=== PATIENT | female | born 1955 | race Caucasian/White ===

== ENCOUNTER 2020-04-04 06:29 | Inpatient (IN) ==
--- NOTE | 2020-03-18 10:25 | PAT Medication Instructions ---
Medication Instructions Date of Service March 18, 2020 Home Medications amitriptyline 10 mg PO HS atorvastatin 20 mg PO HS citalopram 20 mg PO HS conjugated estrogens [Premarin] 0.625 mg VAGINAL 2XWK diclofenac sodium 75 mg PO BID PRN finasteride 2.5 mg PO QPM msm-aloe [id number] oil [Deep Blue Relief] 1 ea TOPICAL UD PRN psyllium husk [Metamucil] 0.52 g PO BID ASK your surgeon for instructions diclofenac sodium 75 mg PO BID PRN STOP taking 24 hours before surgery conjugated estrogens [Premarin] 0.625 mg VAGINAL 2XWK msm-aloe [id number] oil [Deep Blue Relief] 1 ea TOPICAL UD PRN DO NOT take the morning of surgery psyllium husk [Metamucil] 0.52 g PO BID Take evening before surgery amitriptyline 10 mg PO HS atorvastatin 20 mg PO HS citalopram 20 mg PO HS finasteride 2.5 mg PO QPM psyllium husk [Metamucil] 0.52 g PO BID Other Notes If you have any questions please call us at [phone] or [phone] or [phone] or [phone]
--- NOTE | 2020-03-20 10:28 | Anesthesiology Consultation ---
Date of Service March 20, 2020 Assessment & Plan (1) Encounter for pre-operative examination: Per PAT assessment on 03/20: Travel screen negative. No known COVID-19 positive contacts. No current COVID-19 related symptoms. No hx of COVID-19 testing. Chart Review Chart Review: Acceptable Risk for Surgery and Patient seen in Pre Admission Testing Teaching & Discussion Pre-Anesthesia Teaching/Discussion Notes: Instructed NPO after midnight before surgery,except medications with 15 cc of water. Medication instructions provided according to the [facility] guidelines. History Surgery Operation Date: 04/04/20 07:45 Proposed Procedures p L3-L4, L5-S1 Decompression Fusion, L4-L5 Hardware Removal, Spinal Cord Monitoring - Praveen Bray DO Height/Weight Height: 5 ft 3 in Weight: 75.5 kg Allergies Allergy/AdvReac Type Severity Reaction Status Date / Time Sulfa (Sulfonamide Allergy Mild Rash Verified 03/13/20 10:08 Antibiotics) Penicillins Allergy Unknown Rash Verified 03/13/20 10:08 tetracycline Allergy Unknown Rash Verified 03/13/20 10:08 Medications Home Medications Medication Instructions Recorded Confirmed Last Taken amitriptyline 10 mg PO HS 03/13/20 03/13/20 Unknown atorvastatin 20 mg PO HS 03/13/20 03/13/20 Unknown citalopram 20 mg PO HS 03/13/20 03/13/20 Unknown conjugated estrogens [Premarin] 0.625 mg VAGINAL 2XWK 03/13/20 03/13/20 Unknown diclofenac sodium 75 mg PO BID PRN 03/13/20 03/13/20 Unknown finasteride 2.5 mg PO QPM 03/13/20 03/13/20 Unknown msm-aloe [id number] oil 1 ea TOPICAL UD PRN 03/13/20 03/13/20 Unknown [Deep Blue Relief] psyllium husk [Metamucil] 0.52 g PO BID 03/13/20 03/13/20 Unknown Past Medical History Medical History Anxiety Chronic back pain GERD (gastroesophageal reflux disease) occasional with food triggers Hyperlipidemia Skin cancer BCC Skin cancer (melanoma) Exercise / Class Metabolic Activity II 4-5 Yardwork/Stairs/Walk up hill Past Family History Family History Mother Family history of reaction to anesthesia SLOW TO WAKE UP/HALLUCINATIONS Sister Family history of reaction to anesthesia SLOW TO WAKE UP Family history of diabetes mellitus Sister Family history of reaction to anesthesia SLOW TO WAKE UP Past Surgical History Surgical History Back pain with history of spinal surgery LUMBAR History of bilateral tubal ligation History of section History of colonoscopy History of esophagogastroduodenoscopy (EGD) History of laminectomy CERVICAL History of repair of rotator cuff RIGHT Past Anesthesia History Other ("slow to wake"/also, post-op hypotension with tubal (30 years ago)) Mother: "slow to wake"/hallucinations Sisters: "slow to wake" History of PONV No Hx of PONV and Hx of Motion Sickness Social History Smoking Status: Never smoker Do You Dip or Chew Tobacco: No Hx Alcohol Use: Yes Alcohol type: wine alcohol intake frequency: holidays/special occasions only Alcohol Intake Frequency Comment: RARELY Hx Substance Use: No Review of Systems Patient denies chest pain, shortness of breath, dyspnea on exertion, fever, chills, cough, wheezing, palpitations. Physical Exam Vital Signs VITALS BP 128/80 P 60 TEM 98.1P SP02 98%Ra RESP 18 PHYSICAL Mildly decreased cervical extension. Full TMJ range of motion. TMD 3 finger breaths Mallampati Score 1 Dentition: missing left upper side tooth, + several crowns "all over" Lungs: clear throughout to auscultation Cardiac: regular rate and rhythm, no murmurs noted Spine: normal Carotid arteries: negative bruit Extremities: no edema Testing Laboratory Results 03/20/20 10:55 03/20/20 10:55 PT 11.7 Seconds (9.0-12.0) 03/20/20 10:55 INR 1.1 (0.9-1.1) 03/20/20 10:55 APTT 28.4 Seconds (21.0-31.0) 03/20/20 10:55 Urine Color Yellow 03/20/20 Unknown Urine Appearance Clear (Clear) 03/20/20 Unknown Urine pH 6.5 (4.5-7.5) 03/20/20 Unknown Ur Specific [place] 1.009 (1.000-1.030) 03/20/20 Unknown Urine Protein Negative (Negative) 03/20/20 Unknown Urine Glucose (UA) Negative (Negative) 03/20/20 Unknown Urine Ketones Negative (Negative) 03/20/20 Unknown Urine Nitrite Negative (Negative) 03/20/20 Unknown Ur Leukocyte Esterase Negative (Negative) 03/20/20 Unknown Blood Type O Positive 03/20/20 10:55 Antibody Screen NEGATIVE 03/20/20 10:55 Electrocardiogram Date: 03/20/20 SB at 57bpm. unconfirmed report* Chest X-Ray Date: 03/20/20 Findings: + NAD
--- NOTE | 2020-03-20 11:19 | XRay Report ---
XR chest Pre-admission PA/Lat HISTORY: Preop. COMPARISON: None. FINDINGS: The lungs are clear. Cardiac silhouette is normal in size. No pleural effusions. No pneumot horax. IMPRESSION: No acute process. ACT 112: Negative or not required by law. Electronically signed by: Arsh Lawrence M.D. 03/20/2020 11:17 AM
[2020-03-20 11:47] LABS: Basophils # (auto) 0.01 K/uL (0-0.2); Basophils % (auto) 0.2 %; Eosinophils # (auto) 0.09 K/uL (0-0.5); Eosinophils % (auto) 2.1 %; Hematocrit (blood only) 39.3 % (37-47); Hemoglobin 13.3 g/dL (12.0-16.0); Lymphocytes # (auto) 1.13 K/uL (1.2-3.4); Lymphocytes % (auto) 26.7 %; Mean Corpuscular Hemoglobin 28.7 pg (25-34); Mean Corpuscular Hgb Conc 33.8 g/dL (32-36); Mean Corpuscular Volume 84.7 fL (80-100); Mean Platelet Volume 9.6 fL (7.4-10.4); Monocytes # (auto) 0.35 K/uL (0.11-0.59); Monocytes % (auto) 8.3 %; Neutrophils # (auto) 2.66 K/uL (1.4-6.5); Neutrophils % (auto) 62.7 %; Platelet Count 169 K/uL (130-400); RDW Coefficient of Variation 14.2 % (11.5-14.5); RDW Standard Deviation 43.9 fL (36.4-46.3); Red Blood Count 4.64 M/uL (4.2-5.4); White Blood Count 4.24 K/uL (4.8-10.8)
[2020-03-20 11:49] LABS: Appearance Urine Clear (Clear); Bilirubin Urine Negative (Negative); Blood Urine Negative (Negative); Color Urine Yellow; Glucose Urine UA Negative (Negative); Ketones Urine Negative (Negative); Leukocyte Esterase Urine Negative (Negative); Nitrite Urine Negative (Negative); Protein Urine Negative (Negative); Specific Gravity Urine 1.009 (1.000-1.030); Urobilinogen Urine Negative (Negative); pH Urine 6.5 (4.5-7.5)
[2020-03-20 11:59] LABS: INR 1.1 (0.9-1.1); Partial Thromboplastin Time 28.4 Seconds (21.0-31.0); Prothrombin Time 11.7 Seconds (9.0-12.0)
[2020-03-20 13:26] LABS: BUN Creatinine Ratio 24.9 (10-20); Calcium 9.4 mg/dl (8.5-10.1); Creatinine Clr Calc Pharmacy 75.7 ml/min; Est GFR (African American) 99.9; Est GFR (Non-African American) 86.2
--- NOTE | 2020-03-20 23:25 | Electrocardiogram Report ---
Test Reason : Blood Pressure : / mmHG Vent. Rate : 057 BPM Atrial Rate : 057 BPM P-R Int : 162 ms QRS Dur : 086 ms QT Int : 428 ms P-R-T Axes : 076 061 057 degrees QTc Int : 416 ms Sinus bradycardia Otherwise normal ECG No previous ECGs available Confirmed by Misael Sheldon ([id number]) on 03/20/2020 11:25:06 PM Referred By: Praveen Bray Confirmed By:Misael Sheldon
[~2020-04-04 06:29] MED LIST: CEFAZOLIN 1000MG 1,000 MG/7.5 ML SYR IV SCH; CLINDAMYCIN 600 MG/54 ML BAG IV SCH; GABAPENTIN 600 MG DOSE PO SCH; LR 15ML/HR IV SCH
[2020-04-04] MEDS ORDERED: MIDAZOLAM HCL 1 MG/ML 2ML VIAL ONE (06:58)
[2020-04-04] MEDS ORDERED: fentaNYL citrate 100 MCG/2 ML VIAL ONE ×2 (06:58→09:04)
[2020-04-04] MEDS ORDERED: BACITRACIN INJ 50,000 UNIT VIAL ONE (07:00)
[2020-04-04] MEDS ORDERED: BUPIVACAINE/EPINEPHRINE 0.25% 1:200,000 30 ML VIAL ONE (07:01)
[2020-04-04] MEDS ORDERED: ROCURONIUM BROMIDE 10 MG/ML 5 ML VIAL IV ONE ×2 (07:03→08:31)
[2020-04-04] MEDS ORDERED: PROPOFOL IV EMULSION 10 MG/ML 20 ML VIAL IV ONE (07:03)
[2020-04-04] MEDS ORDERED: ONDANSETRON INJ 2 MG/ML 2 ML VIAL ONE (07:03)
[2020-04-04] MEDS ORDERED: LIDOCAINE HCL 2% 2 ML VIAL/AMP(20MG/ML) INFIL ONE (07:03)
[2020-04-04] MEDS ORDERED: DEXAMETHASONE SOD INJ 4 MG/ML VIAL ONE (07:03)
[2020-04-04] MEDS ORDERED: PROMETHAZINE HCL 12.5 MG in SODIUM CHLORIDE 0.9% 50 ML IV PRN ×2 (07:15→12:59)
[2020-04-04] MEDS ORDERED: ATROPINE SULFATE 0.1 MG/ML 10ML SYR IV PRN (07:15)
[2020-04-04] MEDS ORDERED: ePHEDrine sulfate 50 MG/ML AMP IV PRN (07:15)
[2020-04-04] MEDS ORDERED: ONDANSETRON INJ 2 MG/ML 2 ML VIAL IV PRN ×2 (07:15→12:59)
--- NOTE | 2020-04-04 07:26 | History & Physical Bridge Note ---
Date of Service April 04, 2020 History & Physical Bridge Note I have examined the patient, reviewed the History & Physical and in the interval since the performance of the History & Physical I have noted the following changes of clinical significance: no changes noted
--- NOTE | 2020-04-04 07:27 | History & Physical Report ---
Date of Service April 04, 2020 Assessment & Plan (1) Neurogenic claudication due to lumbar spinal stenosis: L3-L4, L5-S1 decompression fusion, L4-L5 hardware removal Present on Admission?: Yes History of Present Illness Chief Complaint: Back and bilateral leg pain Primary Care Provider: George Yoder MD This is a 65-year-old female presents with chronic persistent worsening back and bilateral leg pain. Failed extensive course of nonoperative care is here for surgical invention. Allergies Allergy/AdvReac Type Severity Reaction Status Date / Time Sulfa (Sulfonamide Allergy Mild Rash Verified 04/04/20 06:50 Antibiotics) Penicillins Allergy Unknown Rash Verified 04/04/20 06:50 tetracycline Allergy Unknown Rash Verified 04/04/20 06:50 Home Medications Home Medications Medication Instructions Recorded Confirmed Type amitriptyline 10 mg PO HS 03/13/20 04/04/20 History atorvastatin 20 mg PO HS 03/13/20 04/04/20 History citalopram 20 mg PO HS 03/13/20 04/04/20 History conjugated estrogens [Premarin] 0.625 mg VAGINAL 2XWK 03/13/20 04/04/20 History diclofenac sodium 75 mg PO BID PRN 03/13/20 04/04/20 History finasteride 2.5 mg PO QPM 03/13/20 04/04/20 History msm-aloe [id number] oil 1 ea TOPICAL UD PRN 03/13/20 04/04/20 History [Deep Blue Relief] psyllium husk [Metamucil] 0.52 g PO BID 03/13/20 04/04/20 History Past Med/Surg History Medical History Anxiety Chronic back pain GERD (gastroesophageal reflux disease) occasional with food triggers Hyperlipidemia Skin cancer BCC Skin cancer (melanoma) Surgical History Back pain with history of spinal surgery LUMBAR History of bilateral tubal ligation History of section History of colonoscopy History of esophagogastroduodenoscopy (EGD) History of laminectomy CERVICAL History of repair of rotator cuff RIGHT Family History Mother Family history of reaction to anesthesia SLOW TO WAKE UP/HALLUCINATIONS Sister Family history of reaction to anesthesia SLOW TO WAKE UP Family history of diabetes mellitus Sister Family history of reaction to anesthesia SLOW TO WAKE UP Social History Preferred Language: Andorran Communication Ability: Effective Door To Door Salesperson Required: No Beliefs That Will Affect Care: None Current Living Situation: Spouse Other Information That Helps Us Care for You: No Feels Safe at Home: Yes Safety Concerns: Feels Safe At This Time Smoking Status: Never smoker Do You Dip or Chew Tobacco: No ; Second Hand Exposure: Yes ( A CHILD) ; Hx Alcohol Use: Yes Alcohol type: wine Hx Substance Use: No Physical Exam Physical Exam: Patient is alert and oriented neurologically intact. Lungs clear to auscultation. Heart regular rate and rhythm. Results & Data Vital Signs (Past 12 Hours) Vital Signs Temp Pulse Resp BP Pulse Ox 04/04/20 06:44 36.6 C 68 20 132/86 97
[2020-04-04] MEDS ORDERED: ePHEDrine sulfate 50 MG/ML SYR ONE (08:28)
[2020-04-04] MEDS ORDERED: GLYCOPYRROLATE 0.2 MG/ML VIAL ONE ×2 (08:28→09:50)
[2020-04-04] MEDS ORDERED: PHENYLEPHRINE 100MCG/ML 5ML SYR ONE (08:28)
[2020-04-04] MEDS ORDERED: NEOSTIGMINE METHYLSULFATE 5 MG/5 ML SYR ONE (09:50)
--- NOTE | 2020-04-04 10:17 | Operative Report ---
Post Operative Report Pre & Post Diagnosis Operation Date: 04/04/20 07:45 Pre-Op Diagnosis: LUMBAR SPINAL STENOSIS WITH NEUROGENIC CLAUDICATION Spondylolisthesis L3-4 Post-Op Diagnosis: Same I identified the patient and participated in the time-out.: Yes Procedure Operation Date: 04/04/20 07:45 Actual Procedures #1 removal of posterior instrumentation L4-5. #2 exploration of fusion L4-5. #3 lumbar decompression with bilateral medial facetectomies and foraminotomies L2-3, L3-4. #4 posterior spinal fusion L3-4 L5-S1. #5 placement posterior segmental instrumentation L3-S1. #6 interbody fusion L3-4. #7 placement of peek cage 9 x 22 mm at L3-4. #8 placement of locally harvested morselized autograft in the posterior lateral gutters. #9 placement infuse collagen sponge combined master graft in the posterior lateral gutters and ostial amp interbody space. Surgeon Praveen Bray, DO Commission Auditor None Estimated Blood Loss 150 Findings Consistent with Post-Op Diagnosis Specimens None Indications This is a 65-year-old female well-known to me the presents with above-mentioned diagnosis after failing extensive course of nonoperative care is here for surgical invention. Description of Procedure Patient was met with identified informed consent obtained. Patient was then taken to the operative suite underwent intubation placed in a prone position the Andi table Jose frame. All bony prominences well-padded eyes inspected to ensure no external pressure placed upon them. This point the lumbar spine was prepped and draped in a normal sterile fashion. Sharp dissection with assistance of Bovie cautery was performed down to and exposing the lamina and transverse processes of L3 instrumentation at L4-L5 and the sacral ala bilaterally. I then removed the hardware bilaterally at L4-L5 exploring the fusion mass noting it to be intact. Informed complete laminectomy of L3 partial laminectomy of L2 including bilateral medial facetectomies and foraminotomies addressing severe spinal stenosis. Pedicle screws were then placed in L3-L4-L5 and S1 levels and appropriate size severiano locked in position. By way of a trans- foraminal approach on the right a complete discectomy of L3-4 was performed endplates curetted to subcortical leading bone and a 9 x 22 mm peek cage filled with osteo-bone graft tapped in position. The rods were then locked into final position bilaterally. The transverse processes of L3-L4-L5 and sacral ala were then burred to subcortical bleeding bone. Infuse collagen sponge master graft local autograft was then placed in the posterior lateral gutters. 15 round LAURA drain inserted. The incision was then closed with 1 Vicryl in the fascia 2-0 Vicryl subcutaneously and 4 Monocryl for final skin closure. Steri-Strip sterile dressings placed. Patient will continue PACU stable condition. Please note spinal cord monitoring was utilized that the procedure no changes noted. I attest to the content of the Intraoperative Record and any orders documented therein. Any exceptions are noted below.
--- NOTE | 2020-04-04 10:29 | Fluoroscopy Report ---
INTRAOPERATIVE RADIOGRAPHS CLINICAL HISTORY: L3-S1 spinal fusion. Fluoroscopy time: 20 seconds. FINDINGS: 2 spot fluoroscopic views of the lumbar spine are presented. There has been discectomy at L 3-L4 and L4-L5 with laminectomy and posterior fusion from L3-S1. Interpedicular screws are present at all levels, with only a right-sided screw seen at L4. The orthopedic hardware appears intact. IMPRESSION: Intraoperative images from L3-S1 spinal fusion as above. Electronically signed by: Sylvain Kamara M.D. 04/04/2020 10:28 AM
[2020-04-04] MEDS: fentaNYL citrate 100 MCG/2 ML VIAL IV PRN ×2 (10:39→10:48)
[2020-04-04] MEDS: HYDROmorphone INJ 2 MG/ML SYR/VIAL IV PRN ×3 (11:06→11:19)
--- NOTE | 2020-04-04 11:32 | Anesthesiology Progress Note ---
Date of Service April 04, 2020 Anesthesia Post Procedure Vital Signs Vital Signs: Temp Pulse Pulse Resp BP BP Pulse Ox 04/04/20 11:30 36.5 C 68 14 107/58 L 97 04/04/20 11:20 62 13 105/62 96 04/04/20 11:10 63 16 106/62 98 04/04/20 11:00 58 L 14 107/61 96 04/04/20 10:50 57 L 12 114/65 98 04/04/20 10:40 54 L 12 101/61 98 04/04/20 10:30 60 19 104/62 98 04/04/20 10:21 36.2 C L 67 17 107/59 L 98 04/04/20 06:44 36.6 C 68 20 132/86 97 Pain Intensity Lower Back: Pain Intensity: 4 Transfer of Care Handoff Completed per policy Notes Mental Status: alert / awake / arousable and participated in evaluation Patient Amnestic to Procedure: Yes Nausea / Vomiting: adequately controlled Pain: adequately controlled Airway Patency, RR, SpO2: stable & adequate BP & HR: stable & adequate Hydration State: stable & adequate Anesthetic Complications: no major complications apparent and Pt Satisfied with anesthetic care
[2020-04-04] MEDS ORDERED: DO NOT ADMINISTER PNEUMOCOCCAL VACCINE PRN (12:59)
[2020-04-04] MEDS ORDERED: ALUMINUM/MAGNESIUM SUSP 30 ML UDC PO PRN (12:59)
[2020-04-04] MEDS ORDERED: ONDANSETRON 4 MG OD TAB PO PRN (12:59)
[2020-04-04] MEDS ORDERED: MAGNESIUM HYDROXIDE SUSP 30 ML UDC PO PRN (12:59)
[2020-04-04] MEDS ORDERED: LORazepam 0.5 MG/1 ML VIAL IV PRN (12:59)
[2020-04-04] MEDS ORDERED: SOD PHOSPHATE/SOD BIPHOSPHATE ENEMA 132 ML BTL PR PRN (12:59)
[2020-04-04] MEDS ORDERED: DO NOT ADMINISTER FLU VACCINE PRN (12:59)
[2020-04-04] MEDS ORDERED: HYDROmorphone INJ 1 MG/ML SYRINGE IV PRN (12:59)
[2020-04-04] MEDS ORDERED: LORazepam 0.5 MG TAB PO PRN (12:59)
[2020-04-04] MEDS ORDERED: FAMOTIDINE 20 MG TAB PO PRN (12:59)
[2020-04-04] MEDS ORDERED: METOCLOPRAMIDE HCL INJ 5 MG/ML 2 ML VIAL IV PRN (12:59)
[2020-04-04] MEDS ORDERED: ACETAMINOPHEN 500 MG TAB PO PRN (12:59)
[2020-04-04] MEDS ORDERED: NALOXONE HCL 0.4 MG/1 ML VIAL/CARP IV PRN (12:59)
[2020-04-04] MEDS ORDERED: bisacodyL 10 MG SUPP PR PRN (12:59)
[2020-04-04] MEDS ORDERED: ACETAMINOPHEN 1,000 MG/100 ML VIAL IV PRN (12:59)
[2020-04-04] MEDS ORDERED: LACTATED RINGER'S 1,000 ML IV SCH (13:30)
[2020-04-04] MEDS: KETOROLAC TROMETHAMINE 15 MG/ML VIAL IV SCH ×2 (14:13→20:43)
[2020-04-04] MEDS: TRAMADOL HCL 50 MG TABLET PO PRN (16:35)
[2020-04-04] MEDS: CLINDAMYCIN 600 MG in DEXTROSE 5% 50 ML IV SCH ×2 (16:36→23:35)
[2020-04-04] MEDS: CITALOPRAM 20 MG TAB PO SCH (20:43)
[2020-04-04] MEDS: ATORVASTATIN 20 MG TAB PO SCH (20:44)
[2020-04-04] MEDS: AMITRIPTYLINE HCL 10 MG TAB PO SCH (20:44)
[2020-04-04] MEDS: FINASTERIDE 5 MG TAB PO SCH ×2 (20:45→20:47)
[2020-04-04] MEDS: PSYLLIUM 58.6% POWDER PACKET PO SCH ×2 (20:45→20:48)
[2020-04-04] MEDS: DOCUSATE SODIUM/SENNA 50/8.6MG TAB PO SCH (20:46)
[2020-04-04] MEDS ORDERED: SODIUM CHLORIDE 0.9% 1000ML 1,000 ML IV SCH (21:00)
[2020-04-04] MEDS ORDERED: SODIUM CHLORIDE 0.9% 500 ML IV SCH (21:30)
[2020-04-04] MEDS: SODIUM CHLORIDE 0.9% 1000ML 1,000 ML IV SCH (22:55)
[2020-04-04 23:03] LABS: Hematocrit (blood only) 31.1 % (37-47)
[2020-04-05] MEDS: KETOROLAC TROMETHAMINE 15 MG/ML VIAL IV SCH ×2 (02:19→08:47)
[2020-04-05] MEDS: POLYETHYLENE (MIRALAX) 17 GM PACK PO SCH ×4 (06:23→23:23)
[2020-04-05] MEDS: OXYCODONE HCL IR 5 MG TAB (IMMEDIATE RELEASE) PO PRN ×5 (06:23→23:23)
--- NOTE | 2020-04-05 06:27 | Consultation Report ---
DATE OF CONSULTATION: 04/05/2020 CHIEF COMPLAINT: Hypotension. 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 Postprocedure, blood pressure running on lower side. The patient is asymptomatic. The patient says many years ago when she had surgery on recovery room, she was hypotensive, but the last surgery about 10 years ago in 2007, she did fine. Currently resting comfortably. Denies any chest pain, no shortness of breath, no cough, no headache, no blurred vision, no earache, no runny nose. She has some sore throat could be from surgery. No nausea, no abdominal pain. Moved her bowels couple of days ago. Afebrile. ALLERGIES: SULFA ANTIBIOTICS, PENICILLIN, TETRACYCLINE. PAST MEDICAL HISTORY: As mentioned above. PAST SURGICAL HISTORY: , cryocautery of cervix, EGD with biopsy, laminectomy, ligation of oviducts, cervical disc surgery, right shoulder surgery, video capsule endoscopy. MEDICATIONS: The patient is on amitriptyline 10 mg p.o. at bedtime, Lipitor 20 mg p.o. daily, citalopram 20 mg p.o. daily, diclofenac sodium 75 mg p.o. b.i.d., Premarin 0.625 mg vaginal cream once a week, Proscar 2.5 mg p.o. daily, multivitamin with minerals 1 tablet daily. FAMILY HISTORY: Significant for brother had skin cancer. Father had lung cancer. Mother had skin and stomach cancer. Sister has diabetes. Maternal grandfather and paternal grandfather has heart disorder. SOCIAL HISTORY: . No smoking. Alcohol 1-2 occasional. No drug use. REVIEW OF SYMPTOMS: As per HPI. Rest of review of symptoms negative. PHYSICAL EXAMINATION: GENERAL: The patient is of moderate build, not in acute distress. VITAL SIGNS: Temperature 36.5, pulse 62, respiratory rate 16, blood pressure currently 92/60, oxygen 96% on room air. HEENT: Head atraumatic. NECK: No neck masses. Supple. CARDIOVASCULAR: S1, S2 heard, regular rate and rhythm, no murmur, no gallop. RESPIRATORY SYSTEM: Normal AP diameter. No accessory muscle use. No wheezing, no crackles. ABDOMEN: Soft, bowel sounds present, nontender. No distention. CENTRAL NERVOUS SYSTEM: Alert and oriented. Cranial nerves II-XII grossly intact. Nonfocal. EXTREMITIES: No edema, no erythema seen. MUSCULOSKELETAL: Status post back surgery, dressing and drain intact. LABORATORY DATA: Hemoglobin 10, hematocrit 31. ASSESSMENT AND PLAN: This is a 65-year-old female status post back surgery. 1. Status post back surgery: Postop management as per orthopedics. PT and OT and disposition as per orthopedics. 2. Postop hypotension: Her blood pressure usually runs on the lower side, systolic blood pressure runs in 110s.Blood pressure around high 80s and 90s after postop, getting fluids, currently is 92/60. We will monitor, asymptomatic. Hemoglobin is 10 postoperative. 3. Acute blood loss anemia secondary to postop, hemoglobin 13.1 in January 2019.We will follow repeat labs. 4. Hyperlipidemia: On statin. 5. Deep venous thrombosis prophylaxis and disposition as per orthopedics. MTDD
[2020-04-05 07:24] LABS: Eosinophils # (auto) 0.01 K/uL (0-0.5); Eosinophils % (auto) 0.2 %; Hematocrit (blood only) 29.5 % (37-47); Hemoglobin 9.5 g/dL (12.0-16.0); Immature Granulocytes # (auto) 0.01 K/uL (0.00-0.02); Immature Granulocytes % (auto) 0.2 %; Lymphocytes # (auto) 0.91 K/uL (1.2-3.4); Lymphocytes % (auto) 15.4 %; Mean Corpuscular Hgb Conc 32.2 g/dL (32-36); Monocytes # (auto) 0.46 K/uL (0.11-0.59); Monocytes % (auto) 7.8 %; Neutrophils # (auto) 4.51 K/uL (1.4-6.5); Neutrophils % (auto) 76.4 %; Platelet Count 159 K/uL (130-400); RDW Coefficient of Variation 14.4 % (11.5-14.5); RDW Standard Deviation 45.7 fL (36.4-46.3); Red Blood Count 3.39 M/uL (4.2-5.4)
[2020-04-05 07:56] LABS: Potassium 3.8 mmol/L (3.5-5.1)
[2020-04-05 07:57] LABS: Calcium 8.4 mg/dl (8.5-10.1); Creatinine Clr Calc Pharmacy 105.9 ml/min; Est GFR (African American) 117.9; Est GFR (Non-African American) 101.7
[2020-04-05] MEDS: PSYLLIUM 58.6% POWDER PACKET PO SCH ×2 (08:47→20:11)
[2020-04-05] MEDS: SODIUM CHLORIDE 0.9% 1000ML 1,000 ML IV SCH ×2 (08:51→20:06)
--- NOTE | 2020-04-05 09:52 | Hospitalist Progress Note ---
Date of Service April 05, 2020 Assessment & Plan (1) Neurogenic claudication due to lumbar spinal stenosis: POD # 1. (2) Hypotension: Postop hypotension probably due to perioperative blood loss, anesthesia, analgesics. Does not appear to be in any distress. No need for transfusion at this time. NSS 500 ml bolus ordered. Follow. (3) DVT prophylaxis: Per Ortho Spine protocol. (4) Encounter for consultation: Thank you for this consultation. We will follow the patient with you during their hospital stay. My cell # is [phone]. You can reach a member of the [facility] Medicine Team 02/05 via pager @ [phone]. Admission and Anticipated Discharge Date Admission Date: April 04, 2020 Subjective Recheck for medical management. Patient seen in their room around 0940. Lumbar revision surgery with decompression / fusion performed yesterday. Hypotensive postop. Received IV fluids. Still hypotensive this morning with systolic BP's running 80's - 90's. A bit lightheaded when standing, but otherwise feels well. Not orthostatic. Pain fairly well-controlled. Review of Systems: Constitutional- no fever. Cardiac- no chest pain. Pulmonary- no cough or SOB. GI- no nausea, vomiting, diarrhea, melena, hematochezia. - Vieyra cath. Otherwise, as noted above. Physical Exam Constitutional: no acute distress Respiratory: no respiratory distress Auscultation: lungs clear to auscultation bilaterally Cardiovascular: Rate/Rhythm: regular rate and regular rhythm Heart Sounds: no gallop Vessels: no JVD Extremities: no calf tenderness and no edema Gastrointestinal (Abdomen): normal bowel sounds, soft, nontender, no hepatosplenomegaly Musculoskeletal: Extremities: no cyanosis Skin: no rashes, warm and dry Psychiatric: Orientation: alert and oriented x 3 Results & Data Results & Data ([facility]) Vital Signs (Past 12 Hours) Vital Signs Temp Pulse Pulse Resp BP BP Pulse Ox 04/05/20 09:12 82/48 L 04/05/20 09:04 80/43 L 04/05/20 08:05 90/57 L 04/05/20 06:19 91/60 L 04/05/20 06:11 65 90/58 L 04/05/20 03:23 62 92/60 L 04/05/20 02:36 36.5 C 62 16 96 04/05/20 02:27 87/55 L 89/55 L 04/04/20 23:05 36.4 C L 56 L 14 93/64 L 100
[2020-04-05] MEDS ORDERED: SODIUM CHLORIDE 0.9% 500 ML IV SCH (10:00)
--- NOTE | 2020-04-05 10:01 | Orthopedic Progress Note ---
Date of Service April 05, 2020 Assessment & Plan (1) Neurogenic claudication due to lumbar spinal stenosis: At this time she is struggling with some orthostatic static hypotension. We will advance therapy as tolerated. Present on Admission?: Yes Admission and Anticipated Discharge Date Admission Date: April 04, 2020 Subjective Back pain controlled leg symptoms markedly improved. Physical Exam Physical Exam: On exam she has good strength testing appears comfortable. Results & Data ([facility]) Vital Signs (Past 12 Hours) Vital Signs Temp Pulse Pulse Resp BP BP Pulse Ox 04/05/20 09:12 82/48 L 04/05/20 09:04 80/43 L 04/05/20 08:05 90/57 L 04/05/20 06:19 91/60 L 04/05/20 06:11 65 90/58 L 04/05/20 03:23 62 92/60 L 04/05/20 02:36 36.5 C 62 16 96 04/05/20 02:27 87/55 L 89/55 L 04/04/20 23:05 36.4 C L 56 L 14 93/64 L 100
[2020-04-05] MEDS: HYDROmorphone INJ 0.5 MG/0.5 ML SYR IV PRN (20:07)
[2020-04-05] MEDS: AMITRIPTYLINE HCL 10 MG TAB PO SCH (20:57)
[2020-04-05] MEDS: ATORVASTATIN 20 MG TAB PO SCH (20:57)
[2020-04-05] MEDS: CITALOPRAM 20 MG TAB PO SCH (20:57)
[2020-04-05] MEDS: DOCUSATE SODIUM/SENNA 50/8.6MG TAB PO SCH (20:59)
[2020-04-05] MEDS: FINASTERIDE 5 MG TAB PO SCH (20:59)
[2020-04-06] MEDS: HYDROmorphone INJ 0.5 MG/0.5 ML SYR IV PRN (00:06)
[2020-04-06] MEDS: SODIUM CHLORIDE 0.9% 1000ML 1,000 ML IV SCH (01:48)
[2020-04-06] MEDS: TRAMADOL HCL 50 MG TABLET PO PRN ×3 (02:19→23:46)
[2020-04-06] MEDS: OXYCODONE HCL IR 5 MG TAB (IMMEDIATE RELEASE) PO PRN ×4 (05:04→20:36)
[2020-04-06] MEDS: POLYETHYLENE (MIRALAX) 17 GM PACK PO SCH ×4 (05:05→23:47)
[2020-04-06 06:10] LABS: Hematocrit (blood only) 28.5 % (37-47); Hemoglobin 9.4 g/dL (12.0-16.0); Mean Corpuscular Hemoglobin 28.7 pg (25-34); Mean Corpuscular Volume 87.2 fL (80-100); Mean Platelet Volume 9.3 fL (7.4-10.4); Platelet Count 167 K/uL (130-400); RDW Coefficient of Variation 14.7 % (11.5-14.5); RDW Standard Deviation 46.8 fL (36.4-46.3); Red Blood Count 3.27 M/uL (4.2-5.4); White Blood Count 5.75 K/uL (4.8-10.8)
[2020-04-06 06:46] LABS: Calcium 8.5 mg/dl (8.5-10.1); Creatinine Clr Calc Pharmacy 87.4 ml/min; Est GFR (African American) 110.6; Est GFR (Non-African American) 95.5; Potassium 3.7 mmol/L (3.5-5.1)
[2020-04-06] MEDS: DEXAMETHASONE SOD PHOSPHATE 8 MG in SYRINGE 0 ML IV SCH (08:43)
[2020-04-06] MEDS: PSYLLIUM 58.6% POWDER PACKET PO SCH ×2 (08:43→16:30)
--- NOTE | 2020-04-06 09:16 | Orthopedic Progress Note ---
Date of Service April 06, 2020 Assessment & Plan (1) Neurogenic claudication due to lumbar spinal stenosis: At this time her blood pressure seems to be improving. She is ambulating well. Complaining mostly of back pain. We will maintain the LAURA drain today assess her progress and possibly discharge home tomorrow. Present on Admission?: Yes Admission and Anticipated Discharge Date Admission Date: April 04, 2020 Subjective Back pain controlled leg pain improved. Physical Exam Physical Exam: Patient is up and ambulating. She is good strength testing. Results & Data ([facility]) Vital Signs (Past 12 Hours) Vital Signs Temp Pulse Pulse Resp BP BP Pulse Ox 04/06/20 07:55 138/77 04/06/20 06:25 37.2 C 88 15 123/78 90 04/05/20 23:15 36.8 C 80 16 111/62 94
[2020-04-06] MEDS: DOCUSATE SODIUM/SENNA 50/8.6MG TAB PO SCH (15:04)
--- NOTE | 2020-04-06 18:08 | Hospitalist Progress Note ---
Date of Service April 06, 2020 Assessment & Plan (1) Neurogenic claudication due to lumbar spinal stenosis: POD # 2. (2) Hypotension: Postop hypotension probably due to perioperative blood loss, anesthesia, analgesics. Does not appear to be in any distress. No need for transfusion at this time. Received NSS 500 ml bolus. Blood pressures improved. (3) DVT prophylaxis: Per Ortho Spine protocol. (4) Encounter for consultation: Thank you for this consultation. We will follow the patient with you during their hospital stay. My cell # is [phone]. You can reach a member of the [facility] Medicine Team 02/05 via pager @ [phone]. Admission and Anticipated Discharge Date Admission Date: April 04, 2020 Subjective Recheck for medical management. Patient seen in their room around 0850. Doing fairly well postoperatively. Hypotension resolved. Having some problems with postop pain and constipation. Review of Systems: Constitutional- no fever. Cardiac- no chest pain. Pulmonary- no cough or SOB. GI- no nausea, vomiting, diarrhea, melena, hematochezia. - Vieyra cath removed; voiding without difficulty. Otherwise, as noted above. Physical Exam Constitutional: no acute distress Respiratory: no respiratory distress Auscultation: lungs clear to auscultation bilaterally Cardiovascular: Rate/Rhythm: regular rate and regular rhythm Heart Sounds: no gallop Vessels: no JVD Extremities: no calf tenderness and no edema Gastrointestinal (Abdomen): normal bowel sounds, soft, nontender, no hepatosplenomegaly Musculoskeletal: Extremities: no cyanosis Skin: no rashes, warm and dry Psychiatric: Orientation: alert and oriented x 3 Results & Data Results & Data ([facility]) Vital Signs (Past 12 Hours) Vital Signs Temp Pulse Resp BP BP Pulse Ox 04/06/20 16:28 36.6 C 76 20 109/71 93 04/06/20 07:55 138/77 04/06/20 06:25 37.2 C 88 15 123/78 90 Laboratory Results 04/06/20 04:49 04/06/20 04:49
[2020-04-06] MEDS: FINASTERIDE 5 MG TAB PO SCH (20:35)
[2020-04-06] MEDS: ATORVASTATIN 20 MG TAB PO SCH (20:36)
[2020-04-06] MEDS: CITALOPRAM 20 MG TAB PO SCH (20:36)
[2020-04-06] MEDS: AMITRIPTYLINE HCL 10 MG TAB PO SCH (20:36)
[2020-04-07] MEDS: OXYCODONE HCL IR 5 MG TAB (IMMEDIATE RELEASE) PO PRN ×2 (04:41→09:35)
[2020-04-07] MEDS: POLYETHYLENE (MIRALAX) 17 GM PACK PO SCH ×2 (04:42→12:46)
[2020-04-07] MEDS: PSYLLIUM 58.6% POWDER PACKET PO SCH (08:07)
[2020-04-07] MEDS: DEXAMETHASONE SOD PHOSPHATE 8 MG in SYRINGE 0 ML IV SCH (08:07)
--- NOTE | 2020-04-07 10:33 | Hospitalist Progress Note ---
Date of Service April 07, 2020 Assessment & Plan (1) Neurogenic claudication due to lumbar spinal stenosis: POD # 3. (2) Hypotension: Postop hypotension probably, due to perioperative blood loss, anesthesia, analgesics. Did not appear to be in any distress. No need for transfusion. Received maintenance IV fluids and NSS 500 ml bolus. Hypotension resolved. (3) Constipation: Bowel regimen as ordered. (4) DVT prophylaxis: Per Ortho Spine protocol. (5) Encounter for consultation: Thank you for this consultation. We will follow the patient with you during their hospital stay. My cell # is [phone]. You can reach a member of the [facility] Medicine Team 02/05 via pager @ [phone]. Admission and Anticipated Discharge Date Admission Date: April 04, 2020 Subjective Recheck for medical management. Patient seen in their room around 1010. Doing well postoperatively. No further constipation. Still having problems with constipation. Has received MiraLax, Metamucil, Senokot-S, and Dulcolax suppository. Passing flatus. Ambulating. Review of Systems: Constitutional- no fever. Cardiac- no chest pain. Pulmonary- no cough or SOB. GI- constipated; no nausea, vomiting, diarrhea, melena, hematochezia. - Vieyra cath removed; voiding without difficulty. Otherwise, as noted above. Physical Exam Constitutional: no acute distress Respiratory: no respiratory distress Auscultation: lungs clear to ausculta tion bilaterally Cardiovascular: Rate/Rhythm: regular rate and regular rhythm Heart Sounds: no gallop Vessels: no JVD Extremities: no calf tenderness and no edema Gastrointestinal (Abdomen): normal bowel sounds, soft, nontender, no hepatosplenomegaly Musculoskeletal: Extremities: no cyanosis Skin: no rashes, warm and dry Psychiatric: Orientation: alert and oriented x 3 Results & Data Results & Data ([facility]) Vital Signs (Past 12 Hours) Vital Signs Temp Pulse Pulse Resp BP BP Pulse Ox 04/07/20 07:24 36.4 C L 65 16 104/68 94 04/07/20 00:00 36.6 C 77 18 111/71 96
--- NOTE | 2020-04-07 12:57 | Discharge Summary ---
Date of Service April 07, 2020 Admission HPI Per Admitting Provider This is a 65-year-old female presents with chronic persistent worsening back and bilateral leg pain. Failed extensive course of nonoperative care is here for surgical invention. Principal Diagnosis Lumbar spinal stenosis with neurogenic claudication Discharge Data Allergies Allergy/AdvReac Type Severity Reaction Status Date / Time Sulfa (Sulfonamide Allergy Mild Rash Verified 04/04/20 06:50 Antibiotics) Penicillins Allergy Unknown Rash Verified 04/04/20 06:50 tetracycline Allergy Unknown Rash Verified 04/04/20 06:50 Consultations 04/04/20 12:59 Consult Case Management - Discharge Planning Routine 04/04/20 21:08 Consult Hospitalist Routine Procedures Performed Operation Date: 04/04/20 07:45 Actual Procedures p L3-L4, L5-S1 Decompression Fusion, Spinal Cord Monitoring, Application of OsteoAmp and Bone Morphogenetic Protein, Interbody Placement L3-L4 - Praveen Bray DO s L4-L5 Hardware Removal - Praveen Bray DO Ordered Studies 04/04/20 07:45 FL fluoroscopy <1hr Routine FL lumbar spine 2-3V Routine Hospital Course (1) Neurogenic claudication due to lumbar spinal stenosis: Patient underwent multilevel lumbar decompression and fusion tolerated this well was taken to the orthopedic floor postoperative. Postop day 1 she was up and ambulating leg pain improved with aggressive postop day #2 on postop day 3 LAURA drain decreased appropriately. Pain well controlled. He is socially discharged home. Discharge orders and instructions from the chart for further review. Total Time Total Time Spent Total Time Spent (In Minutes): 20 minutes Discharge Plan Discharge Items Patient Disposition: Home - Self-Care Reason For Visit: LUMBAR SPINAL STENOSIS W NEUROGENIC CLAUDICATION Discharge Diagnosis: Lumbar spinal stenosis with neurogenic claudication and spondylolisthesis L3-4 Activity: As commented below Non-emergency contact: Primary Care Provider Call non-emergency contact if: you have any medication questions Follow-up/Referrals: George Yoder MD [Primary Care Provider] - Diet: Regular Addtl Attending Provider Instructions: ACTIVITY RECOMMENDATIONS: SELF CARE INSTRUCTIONS AFTER THORACIC/LUMBAR FUSIONS 1. You may walk to your tolerance. It is good exercise for your legs and back. Expect some back and intermittent leg aches and pains. 2. You may perform "counter-top" level activities (make a sandwich, catrina with a project, etc.). 3. No bending or lifting of more than 10 pounds or back twisting of any nature (roll like a log when turning in bed). 4. You may ride in a car for 20-30 minutes at a time. No driving until after your first visit with your doctor. 5. Frequent changes of position and restricting sitting to 30 minutes at a time will help limit the amount of back spasms and stiffness you may experience. 6. You may discontinue the use of ambulatory aids (cane, crutches, etc.) once your strength and confidence allow. 7. You may organ pipe finisher the shower and let water strike your incision when you arrive home at least once daily. Do not take a tub bath, sit in a hot tub or go into a swimming pool until after your first recheck in the office. SPECIAL CARE INSTRUCTIONS: VERY IMPORTANT TO READ AND REVIEW A. Your surgical incision has been closed with a cosmetic suture under the skin that will dissolve in about 6 weeks. In 14 days, you can use a pair of clean scissors and cut the suture that is left outside of the skin at the ends of your incision. 1. The small skin tapes can be removed 7 days after surgery if they have not fallen off by that point. 2. You may keep the wound open to air as much as possible to promote healing after post-op day number 5 unless told otherwise by your doctor. 3. If you think the wound looks like it is becoming infected (redness or worsening drainage) and/or you are experiencing fever, chill or worsening back pain and muscle spasms, contact the office so that we may evaluate you as soon as possible. B. Complications are uncommon, but please contact us if you have any signs or symptoms of: 1. wound infection (fever higher than 102.5 degrees F, redness, separation of wound, drainage, or increasing pain from the incision) 2. blood clots in legs (pain, swelling, redness and warmth in legs) 3. urinary tract infection (fever higher than 102.5 degrees F, burning upon urination or increased frequency of urination) 4. nerve problems (inability to walk on your toes or heels, numbness, loss of bowel or bladder control) 5. any other symptoms that concern you C. Please call the office at if you have any concerns or questions about your operation or recovery. D. No smoking! Smoking drastically decreases the chance of a solid fusion. E. Do not take any anti-inflammatory medications (Indocin, Advil, Motrin, Aspirin, Naprosyn, etc.) as these may inhibit the chance of a solid fusion. Tylenol is okay to take for pain. MANAGING PAIN AFTER SPINAL SURGERY 1. Narcotic medication is intended for short-term use and will be provided for surgical pain. Surgical pain usually lasts for a period of 4-6 weeks. Narcotic medication includes Percocet, Vicodin, Darvocet, Tylenol #3 or Lortab. 2. Longer-term pain is more appropriately treated with non-narcotic medication such as Tylenol ES. 3. Muscle spasm is not appropriately treated with narcotics. Muscle relaxers such as Soma, Flexeril or Skelaxin can be used along with Tylenol ES. 4. Remember that we all live with some "aches and pains". This is not unusual or uncommon after an injury or as we get older. a. Back pain is expected and may include muscle spasms for 4 to 6 weeks after surgery. The pain should gradually improve. If the pain worsens for no apparent reason, please contact the office. b. Intermittent leg pain may also be experienced and should not be concerned about unless it worsens for no apparent reason. If so, please contact the office. 5. We will provide appropriate medication within the normal guidelines of their prescribed use. We will also be very cautious and aware of potential abuse and extended duration of patients' medication needs. a. Pain medications are for your comfort and to assist with sleep and rest so that the tissue can heal. They are not provided in order to return to normal activity and should not be used through the day. To do so or worsening pain at night can result from ongoing tissue damage and development of tolerance to the prescribed medicine. 6. Please allow 2-3 days to process refills. Prescriptions will not be mailed but must be picked up at the office. FOLLOW UP VISIT: Keep your scheduled follow-up appointment. Any questions, please call the office at . Pending Studies at Discharge: No Stand-Alone Forms: [employer], Opioid Pain Management, Smoking Cessation Medications and DC Order Prescriptions: New oxycodone 5 mg tablet 5 mg PO Q6H PRN (Reason: pain, severe) Qty: 20 RF: 0 tramadol 50 mg tablet 50 mg PO Q6H PRN (Reason: pain, moderate) Qty: 30 RF: 0 Continued atorvastatin 20 mg Tablet 20 mg PO HS RF: 0 citalopram 20 mg Tablet 20 mg PO HS RF: 0 amitriptyline 10 mg Tablet 10 mg PO HS RF: 0 Premarin 0.625 mg/gram Cream 0.625 mg VAGINAL 2XWK RF: 0 finasteride 5 mg Tablet 2.5 mg PO QPM RF: 0 psyllium husk [Metamucil] 0.52 gram Capsule 0.52 g PO BID RF: 0 Deep Blue Relief Gel 1 ea TOPICAL UD PRN (Reason: Pain) RF: 0 Discontinued diclofenac sodium 75 mg Tablet,Delayed Release (Dr/Ec) 75 mg PO BID PRN (Reason: Pain) RF: 0 Discharge Orders: Discharge Order (Routine); Ordered 04/07/20 Ordered By: Praveen Rosado/Other Patient Handouts: Back Safety: Sleeping Positions Admission Data Admit Date/Time: 04/04/20 11:20 Attending Provider: Praveen Bray Admit Provider: Praveen Bray Primary Care Provider: George Yoder Other Providers: Torsten Samano Other Interventions: Discharge Summary Assessment (RN) Last Done: 04/07/20 11:26
== END 2020-04-07 13:34 | disposition home or self-care (01) | DRG 454 ==
LOC: ASU 06:29 → 3E 11:20